=== PATIENT | male | born 1955 | race Caucasian/White ===

== ENCOUNTER 2018-10-07 17:47 | Emergency (ER) | payer OTHER ==
[~2018-10-07] VITALS: Ht 180.3 cm; Wt 75.3 kg
[2018-10-07] MEDS ORDERED: HUMALOG KW100 UNIT/1 SUBQ (18:38)
[2018-10-07] MEDS ORDERED: HUMALOG100 UNIT/1 SUBQ (18:38)
[2018-10-07] MEDS ORDERED: COZAAR 25 MG TA25 MG PO (18:39)
[2018-10-07] MEDS ORDERED: ZANTAC 150MG T150 M1 PO (18:39)
[2018-10-07] MEDS ORDERED: CARVEDILOL3.125 MG PO (18:39)
[2018-10-07] MEDS ORDERED: ENOXAPARIN40 MG/0.1 SUBQ (18:39)
[2018-10-07] MEDS ORDERED: SENNA8.6 MG PO (18:40)
[2018-10-07] MEDS ORDERED: NEURONTIN600 MG PO (18:40)
[2018-10-07] MEDS ORDERED: KEFLEX500 M2 PO (18:40)
[2018-10-07] MEDS ORDERED: BUSPIRONE HCL10 MG PO (18:40)
[2018-10-07] MEDS ORDERED: SEROQUEL 25 MG25 M1 PO (18:41)
[2018-10-07] MEDS ORDERED: FLEXERIL PO (18:41)
[2018-10-07] MEDS ORDERED: TRAZODONE HCL50 MG PO (18:41)
[2018-10-07] MEDS ORDERED: OXYCODONE HCL10 MG PO (18:42)
[2018-10-07 18:45] LABS: URINE CLARITY CLOUDY; URINE COLOR STRAW
[2018-10-07 18:46] LABS: URINE BILIRUBIN NEGATIVE (Negative); URINE BLOOD TRACE (Negative); URINE GLUCOSE-RANDOM* NEGATIVE (Negative); URINE KETONES NEGATIVE (Negative); URINE LEUKOCYTES-REFLEX 3+ (Negative); URINE NITRITE-REFLEX NEGATIVE (Negative); URINE PROTEIN (DIPSTICK) TRACE (Negative); URINE SPECIFIC GRAVITY 1.015 (1.005-1.035); URINE UROBILINOGEN 0.2 E.U./dl (0.2-1.0)
[2018-10-07 18:48] LABS: BACTERIA-REFLEX >30 Many /HPF (None Seen); CASTS None Seen /LPF (None Seen); SQUAMOUS None Seen /LPF (0-3); URINE RBC None Seen /HPF (0-2); URINE WBC-REFLEX >25 Many /HPF (0-5)
[2018-10-07 18:49] LABS: CRYSTALS None Seen /LPF (None Seen)
[2018-10-07 19:28] LABS: HEMATOCRIT 28.7 % (42.0-52.0); HEMOGLOBIN 9.6 gm/dL (14.0-18.0); MCH 29.9 pg (26.0-34.0); MCHC 33.6 g/dL (28.0-37.0); PLATELET COUNT 285 thou/uL (150-400); RBC 3.23 mil/uL (4.50-6.00); RDW 16.7 % (10.5-14.5); WBC 9.5 thou/uL (4.0-11.0)
[2018-10-07 19:38] LABS: ANION GAP 7 mmol/L (7-16); BUN 37 mg/dL (7-18); CALCIUM 9.1 mg/dL (8.5-10.1); CHLORIDE 99 mmol/L (98-107); CO2 30 mmol/L (21-32); GLUCOSE 91 mg/dL (74-106); POTASSIUM 4.6 mmol/L (3.5-5.1); SODIUM 136 mmol/L (136-145)
[2018-10-07 19:47] LABS: ALBUMIN 2.6 g/dL (3.4-5.0); SGOT 53 U/L (15-37); SGPT 36 U/L (30-65); TOTAL BILIRUBIN 0.4 mg/dL (<0.1-1.0); TOTAL PROTEIN 8.8 g/dL (6.4-8.2); TROPONIN-I <0.06 ng/mL (<0.06)
[2018-10-07 20:18] LABS: ABSOLUTE NEUTROPHILS 6.1 thou/uL (1.4-8.2); ANISOCYTOSIS 1+; POLYCHROMASIA OCCASIONAL
[2018-10-07] MEDS ORDERED: KEFLEX500 M1 PO (20:37)
[2018-10-07 21:19] VITALS: BP 120/61
--- NOTE | 2018-10-08 10:47 | EKG ---
[place] [address] [facility] [place] [address] ELECTROCARDIOGRAM REPORT Name: MAYELAYG D [id number] Admission: 10/07/18 Attend Phys: Discharge: 10/07/18 Date of : 59 Report #: [id number] THIS REPORT FOR: //name// [facility] ED Test Date: 2018-10-07 Test Time: 18:18:59 Pat Name: YG PEDRO Department: Room: Gender: Plasterer Tender: : 1955 Requested By: Leelee Gray Order Number: [id number] MD: John Mendoza Measurements Intervals [place] Rate: 74 P: 31 NE: 165 QRS: 28 QRSD: 104 T: 73 QT: 364 QTc: 404 Interpretive Statements Sinus rhythm Early R-wave progression Nonspecific ST segment abnormality No previous ECG available for comparison Electronically Signed On 10-08-2018 10:47:22 [employer] by John Mendoza [email or web address] <ELECTRONICALLY SIGNED> By: John Mendoza MD, [facility] 10/08/18 1047 1818 1818 John Mendoza MD, FACC /EPI
== END 2018-10-07 22:55 ==
LOC: ER 17:47
PROVIDERS: Student in an Organized Health Care Education/Training Program
DX: N39.0 Urinary tract infection, site not specified (principal); R41.82 Altered mental status, unspecified; E11.9 Type 2 diabetes mellitus without complications; F41.9 Anxiety disorder, unspecified; I10 Essential (primary) hypertension; J44.9 Chronic obstructive pulmonary disease, unspecified; K21.9 Gastro-esophageal reflux disease without esophagitis